=== PATIENT | male | born 1980 | race Caucasian/White ===

== ENCOUNTER 2021-05-12 13:13 | Emergency (ER) | payer OTHER, SELFPAY ==
--- NOTE | ~2021-05-12 | XR_ITS ---
EXAMINATION: XR chest 2V EXAM DATE: 05/12/2021 14:37 INDICATION: Chest pain, dyspnea. TECHNIQUE: Frontal and lateral projections of the chest obtained and reviewed. There is no prior evelyn dy for comparison. FINDINGS: The lungs are clear. There are no pleural effusions. The cardiomediastinal silhouette is within normal limits. There is no pneumothorax suspected. The bones and soft tissues are unremarkab le. IMPRESSION: No acute cardiopulmonary findings. Reviewed, dictated and finalized at location A. GENICS ENGINEER
--- NOTE | 2021-05-12 13:21 | ECG_ITS ---
Measurements Intervals [place] Rate: 82 P: 30 RI: 140 QRS: 13 QRSD: 86 T: 3 QT: 357 QTc: 418 Interpretive Statements SINUS RHYTHM DELAYED PRECORDIAL R/S TRANSITION MINIMAL Q WAVES- INFERIOR LEADS BORDERLINE ST-T WAVE ABNORMALITY- INFERIOR LEADS BORDERLINE ECG Electronically Signed On 05-12-2021 14:11:25 COATING MACHINE OPERATOR HELPER by Luis De La Torre D.O.
[2021-05-12 13:24] VITALS: BP 154/101; PULSE 80; RESP 16; TEMP 36.8; O2SAT 98
[2021-05-12 14:58] LABS: Basophils Percent Auto 0.3 % (0.2-1.2); Eosinophils Absolute Auto 0.1 K/mm3 (0-0.3); Hematocrit 46.8 % (42.0-52.0); Hemoglobin 16.9 g/dL (14.0-18.0); Immature Granulocyte Absolute 0.03 K/mm3 (0.00-0.031); Immature Granulocyte Percent A 0.3 % (0-0.5); Lymphocytes Absolute Auto 2.47 K/mm3 (0.9-3.2); Lymphocytes Percent Auto 28.3 % (18.3-44.2); Mean Corpuscular HGB Conc 36.1 g/dl (32-36); Mean Corpuscular Hemoglobin 31.2 pg (26-34); Mean Corpuscular Volume 86.3 fl (80-100); Mean Platelet Volume 9.3 fl (7.4-10.4); Monocytes Absolute Auto 0.6 K/mm3 (0.1-0.6); Monocytes Percent Auto 7.2 % (2.6-8.5); Neutrophils Absolute Auto 5.5 K/mm3 (1.3-6.7); Neutrophils Percent Auto 62.9 % (45.5-73.1); Platelet Count Result 423 k/mm3 (150-375); Red Blood Count 5.42 M/mm3 (4.6-6.20); Red Cell Distribution Width 11.8 % (11.5-14.5); White Blood Count 8.7 K/mm3 (4.5-10.0)
[2021-05-12 15:08] LABS: Partial Thromboplastin Time 29.7 SECONDS (22.3-36.8); Prothrombin Time 12.6 Seconds (11.1-14.7)
[2021-05-12 15:10] LABS: Alanine Aminotransferase 25 U/L (4-50); Albumin Level 4.6 g/dL (3.5-5.1); Alkaline Phosphatase 63 U/L (38-126); Anion Gap 10 mmol/L (8-16); Aspartate Amino Transferase 27 U/L (17-59); Bilirubin,Total 0.9 mg/dL (0.2-1.3); Blood Urea Nitrogen 13 mg/dL (9-20); Calcium 9.6 mg/dL (8.4-10.2); Carbon Dioxide 24 mmol/L (22-30); Chloride 104 mmol/L (98-107); Estimated CRCL calculation 101 ml/min; Estimated Glomerular Filt Rate > 60; Glucose 106 mg/dL (65-110); Lipase 51 U/L (23-300); Potassium 3.9 mmol/L (3.4-5.0); Sodium 138 mmol/L (137-145)
[2021-05-12 15:21] LABS: Troponin I < 0.012 ng/mL (0.000-0.034)
[2021-05-12 15:34] VITALS: BP 152/101; PULSE 81; RESP 20; O2SAT 96
--- NOTE | 2021-05-12 16:35 | ED.CHESTPAIN ---
HPI - Chest Pain General Chief Complaint: Chest Pain Stated Complaint: chest tightness Time Seen by Provider: 05/12/21 16:26 Source: patient Mode of arrival: ambulatory Limitations: no limitations History of Present Illness HPI narrative: 41 y/o male presents to the ER today for evalution for feeling tired and lightheaded since yesterday. He has felt a little short of breath and felt a brief episode of chest tightness today. He says that he took a home covid test 1 week ago and it was positive. He had some mild cold symptoms and sore throat. Those symptoms are better now. He has had some diarrhea but says that this has only been about once a day. He has been eating and drinking okay. No fever or chills. No nausea or vomiting. Related Data Allergies Allergy/AdvReac Type Severity Reaction Status Date / Time No Known Allergies Allergy Unverified 12/28/16 09:18 Review of Systems Constitutional: Constitutional: Denies chills, Reports fatigue and Denies fever(s) Eyes: Eyes: Denies change in vision ENT: Reports dizziness Cardiovascular: Cardiovascular: Reports no additional cardiovascular complaints, Denies chest pain, Denies rapid heart rate and Denies slow heart rate Respiratory: Respiratory: Denies chest congestion, Denies cough, Denies dyspnea and Denies wheezing Gastrointestinal: Gastrointestinal: Denies abdominal pain, Reports diarrhea, Denies nausea and Denies vomiting Genitourinary: Genitourinary: Denies oliguria and Denies dysuria Musculoskeletal: Musculoskeletal: Denies back pain Integumentary/Breasts: Skin/Breast: Denies rash Neurologic: Denies vertigo, Reports dizziness, Denies headache(s), Denies numbness and Denies weakness Psychiatric: Psychiatric: Reports no additional psychiatric complaints Endocrine: Endocrine: Reports no additional endocrine complaints Hematologic/Lymphatic: Hematologic/Lymphatic: Reports no additional hematologic/lymphatic complaints Allergic/Immunologic: Allergic/Immunologic: Reports no additional allergic/immunologic complaints Exam Const: General: no acute distress and alert Orientation/consciousness: patient oriented x3 HENMT: Head: normal to inspection Eyes: Conjunctivae: conjunctivae normal Pupils: Equal, round and reactive pupils present Neck: Neck: normal visual inspection Chest: Chest palpation & inspection: normal inspection of the chest Resp: Effort & Inspection: normal respiratory effort Auscultation: clear to auscultation bilaterally Cardio: Rate: regular rate Rhythm: regular rhythm GI: GI Palp: Yes Soft to palpation, No Tenderness to palpation present (GI) and No Guarding due to palpation present (GI) Skin: General skin exam: normal color Rashes: no rashes Neuro: General: patient oriented x3 and moves all extremities Extrem: General: normal to inspection Psych: Mental Status: mental status grossly normal Affect: normal affect Attitude: cooperative Course Vital Signs Vital signs: Vital Signs Temperature 36.8 C 05/12/21 13:24 Pulse Rate 80 05/12/21 13:24 Respiratory Rate 16 05/12/21 13:24 Blood Pressure 154/101 H 05/12/21 13:24 Pulse Oximetry 98 05/12/21 13:24 Temperature 36.8 C 05/12/21 13:24 Pulse Rate 81 05/12/21 15:34 Respiratory Rate 20 05/12/21 15:34 Blood Pressure 152/101 H 05/12/21 15:34 Pulse Oximetry 96 05/12/21 15:34 MDM - Chest Pain Medical Records Data Attestation: I reviewed the patient's medical records. Lab Data Attestation: I reviewed the patient's lab results. Result diagrams: 05/12/21 14:48 05/12/21 14:48 Labs: Lab Results 05/12/21 05/12/21 05/12/21 Range/Units 14:48 14:48 14:48 WBC 8.7 (4.5-10.0) K/mm3 RBC 5.42 (4.6-6.20) M/mm3 Hgb 16.9 (14.0-18.0) g/dL Hct 46.8 (42.0-52.0) % MCV 86.3 (80-100) fl MCH 31.2 (26-34) pg MCHC 36.1 H (32-36) g/dl RDW 11.8 (11.5-14.5) % Plt Count 423 H (150-375) k/mm3
== END 2021-05-12 17:26 | disposition home or self-care (01) ==
LOC: ANHED 17:08
PROVIDERS: Emergency Medicine; Emergency Provider Nurse Practitioner Family; PCP Emergency Medicine
DX: U07.1 COVID-19 (principal); R94.31 Abnormal electrocardiogram [ECG] [EKG]
CPT/HCPCS: 36415; 71046; 80053; 83690; 84484; 85025; 85610; 85730; 93005; 99284

== ENCOUNTER 2021-05-16 11:08 | Outpatient (CLI) | payer OTHER, SELFPAY ==
[2021-05-16 12:47] LABS: Cholesterol 211 mg/dL (0-200); HDL Direct 28 mg/dL; Triglycerides 257 mg/dL (<150)
[2021-05-16 12:58] LABS: LDL Cholesterol Direct 125 mg/dL
== END 2021-05-16 11:09 | disposition home or self-care (01) ==
LOC: ANHLAB 11:10
PROVIDERS: PCP Physician Assistant; Visit Provider Physician Assistant
DX: Z13.220 Encounter for screening for lipoid disorders (principal)
CPT/HCPCS: 36415; 80061

== ENCOUNTER 2021-06-05 16:03 | Outpatient (CLI) | payer OTHER, SELFPAY ==
--- NOTE | ~2021-06-05 | US_ITS ---
EXAMINATION: US carotid duplex BI DATE: 06/05/2021 16:43 INDICATION: Paresthesias. Hypertension. TECHNIQUE: Grayscale, color Doppler, and pulsed Doppler images of the cervical carotid arteries were obtained. The degree of vessel stenosis is placed in one of the following categories: normal, <50%, 5 0-69%, >=70% but less than near-occlusion, near-occlusion, or total occlusion. Note that percent sten osis relative to normal distal artery lumen diameter is indirectly measured from velocity measurement s as described by Shree, et al. Radiology 2003; 229:[id number]. Notes: Normal: Peak systolic velocity <125 centimeters/sec and no plaque <50%. Peak systolic velocity <125 ( EDV <40; ICA/CCA PSV ratio <2.0; used these factors only a tandem lesions or low cardiac output or co ntralateral disease) 50-69 %: PSV 125-230 (EDV 40-100; ratio 2-4) >= 70% but less than near occlusion: PSV greater than 230 (EDV > 100; ratio> 4.0) Near Occlusion: PSV that is variable; markedly narrowed lumen Occlusion: Absent flow on color/spectral Doppler and no lumen on spears scale. COMPARISON: None. FINDINGS: RIGHT: The right common carotid artery (CCA) peak systolic velocity (PSV) is 143 cm/s. The right internal ca rotid artery (ICA) PSV is 118 cm/s. The right ICA end-diastolic velocity (EDV) is 34 cm/s. The right ICA/CCA PSV ratio is 1.0. The external carotid artery (ECA) PSV is 144 cm/s. There is antegrade flow in the right vertebral artery. LEFT: The left CCA PSV is 158 cm/s. The left ICA PSV is 124 cm/s. The left ICA EDV is 49 cm/s. The left ICA /CCA PSV ratio is 1.0. The ECA PSV is 118 cm/s. There is antegrade flow in the left vertebral artery . IMPRESSION: 1. Less than 50% stenosis in the right internal carotid artery by sonographic criteria. 2. Less than 50% stenosis in the left internal carotid artery by sonographic criteria. Reviewed, dictated and finalized at location B. IMPRESSION: 1. Less than 50% stenosis in the right internal carotid artery by sonographic c jose. 2. Less than 50% stenosis in the left internal carotid artery by sonographic rene azar.
== END 2021-06-05 16:04 | disposition home or self-care (01) ==
LOC: ANHIMG 16:04
PROVIDERS: PCP Physician Assistant; Visit Provider Physician Assistant
DX: R20.2 Paresthesia of skin (principal); R03.0 Elevated blood-pressure reading, without diagnosis of hypertension; I65.23 Occlusion and stenosis of bilateral carotid arteries
CPT/HCPCS: 93880

== ENCOUNTER 2021-11-21 16:14 | Emergency (ER) | payer OTHER, SELFPAY ==
--- NOTE | ~2021-11-21 | XR_ITS ---
EXAMINATION: XR abdomen/kub 1V DATE: 11/21/2021 17:01 INDICATION: Right flank pain for 2 weeks with hematuria TECHNIQUE: A supine view of the abdomen on 2 radiographs was obtained. COMPARISON: None. FINDINGS: There are 3 small round calcifications in the left hemipelvis along the cephalad margin of the superi or pubic ramus which appear more caudal than would be expected for the course of the left ureter and are more likely to represent phleboliths. No evident urolithiasis. Normal bowel gas pattern. Bones ar e unremarkable. IMPRESSION: 1. A few phleboliths in the left pelvis. No evident urolithiasis. Reviewed, dictated and finalized at location A.
[2021-11-21 16:25] VITALS: BP 145/89; PULSE 74; RESP 18; TEMP 37.1; O2SAT 98
--- NOTE | 2021-11-21 17:01 | ED.MALEGU ---
HPI - Male Genitourinary General Chief complaint: Urogenital-Male Stated complaint: back pain Time Seen by Provider: 11/21/21 16:38 Source: patient, RN notes reviewed and old records reviewed Mode of arrival: ambulatory Limitations: no limitations History of Present Illness HPI Narrative: 41-year-old woman male who presents to [facility] care with complaints of urinary frequency which started about 2 weeks ago with some pain to his right side rib cage that was tolerable, now he has further right flank pain which is increased today and he states he is also having some pain to the left lower back. Patient denies any pain with urination or any visible blood in his urine MD Complaint: other (right flank pain and left lower back pain) Onset (ago): day(s) (10) Severity scale (1-10): 5 Quality: aching Related Data Allergies Allergy/AdvReac Type Severity Reaction Status Date / Time No Known Allergies Allergy Verified 11/21/21 16:41 Review of Systems Review of Systems: CONSTITUTIONAL: Denies fever, chills, or sweats. EYES: Denies visual changes, redness, or discharge. ENT: Denies rhinorrhea, congestion, sore throat, or otalgia. CARDIOVASCULAR: Denies chest pain, palpitations, or edema. RESPIRATORY: Denies cough or dyspnea. GASTROINTESTINAL: Denies abdominal pain, nausea, vomiting, or diarrhea. GENITOURINARY: Denies dysuria or hematuria.right flank pain and also left lower back pain SKIN: Denies rash or itching. MUSCULOSKELETAL: Positive for back pain,no joint pain, or myalgia. NEUROLOGIC: Denies headache, numbness, or weakness. PSYCHIATRIC: Denies anxiety or depression. [facility] Past Medical History Medical History (Updated 11/23/21 @ 21:37 by Zaida House NP) Bilateral carotid artery stenosis Doppler <50% bilaterally, 06/05/2021 Hypertension Pure hypercholesterolemia, unspecified Family History Family History Father Hypertension Heart disease Grandparent COPD (chronic obstructive pulmonary disease) Social History Social History Smoking status: Never smoker Second hand tobacco smoke exposure: No Alcohol intake: current Alcohol use details: Rarely Substance use: never Substance use type: does not use Gender identity (if verbalized by the patient): Male Sexual Orientation (if Verbalized by the Patient): Straight or Heterosexual Spiritual care concerns: No Agree to blood products: Yes Comments At time of signature, agree with nursing past medical, surgical, social and family history. There is no relevant family history pertinent to the presenting complaint Exam Narrative: GENERAL: Well-appearing, well-nourished, and in no acute distress. HEAD: Normocephalic, atraumatic. EYES: PERRLA and EOMI. ENT: Nares clear, no rhinorrhea or epistaxis. Mucous membranes moist.TM's normal with good light reflex, throat pink with no swelling or exudates NECK: Supple.no lymphadenopathy CHEST: Clear to auscultation. No respiratory distress.SAO2 98% on room air HEART: Regular rate and rhythm. No murmur heard. Normal peripheral pulses. ABDOMEN: Soft, nontender, nondistended, normal active bowel sounds.CVA tenderness right back and left lower back non radiating pain EXTREMITIES: Normal range of motion. No edema. SKIN: Warm, dry, no rash. NEURO: No focal deficits. Alert and oriented x3. Course Course Level of Care: Express Care Visit Vital Signs Vital signs: Vital Signs Temperature 37.1 C 11/21/21 16:25 Pulse Rate 74 11/21/21 16:25 Respiratory Rate 18 11/21/21 16:25 Blood Pressure 145/89 H 11/21/21 16:25 Pulse Oximetry 98 11/21/21 16:25 Oxygen Delivery Room Air 11/21/21 16:25 Temperature 37.1 C 11/21/21 16:25 Pulse Rate 74 11/21/21 16:25 Respiratory Rate 18 11/21/21 16:25 Blood Pressure 145/89 H 11/21/21 16:25 Pulse Oximetry 98 11/21/21 16:25 Oxygen Delivery Room A
== END 2021-11-21 17:44 | disposition home or self-care (01) ==
PROVIDERS: Emergency Provider Registered Nurse
DX: M54.50 Low back pain, unspecified (principal); I65.23 Occlusion and stenosis of bilateral carotid arteries; I10 Essential (primary) hypertension; E78.00 Pure hypercholesterolemia, unspecified
CPT/HCPCS: 74018; 81003; 99213; G0463

== ENCOUNTER 2021-12-15 10:27 | Emergency (ER) | payer OTHER, SELFPAY ==
[2021-12-15] VITALS (29 sets, daily range): BP systolic 127–139; BP diastolic 82–93; PULSE 61–75; RESP 12–23; TEMP 36.6; O2SAT 90–99
--- NOTE | ~2021-12-15 | XR_ITS ---
EXAMINATION: XR chest 2V DATE: 12/15/2021 11:53 INDICATION: Chest tightness. TECHNIQUE: Frontal and lateral views of the chest were obtained. COMPARISON: Chest 2 views 05/12/2021 FINDINGS: There is no pneumonia, pleural effusion, or pneumothorax. The heart size is normal. IMPRESSION: 1. No acute cardiopulmonary disease. Reviewed, dictated and finalized at location A.
--- NOTE | 2021-12-15 10:28 | ECG_ITS ---
Measurements Intervals [place] Rate: 67 P: 31 NE: 174 QRS: 7 QRSD: 88 T: 15 QT: 376 QTc: 398 Interpretive Statements SINUS RHYTHM DELAYED PRECORDIAL R/S TRANSITION MINIMAL Q WAVES- INFERIOR LEADS BASELINE WANDER- VL, AVF BORDERLINE ECG COMPARED TO ECG 05/12/2021 13:26:26 NO SIGNIFICANT CHANGES Electronically Signed On 12-15-2021 11:14:22 CDT by Luis De La Torre D.O.
[2021-12-15 10:45] LABS: Basophils Percent Auto 0.3 % (0.2-1.2); Eosinophils Absolute Auto 0.2 K/mm3 (0-0.3); Eosinophils Percent Auto 2.7 % (0-4.4); Hematocrit 47.9 % (42.0-52.0); Hemoglobin 16.6 g/dL (14.0-18.0); Immature Granulocyte Absolute 0.02 K/mm3 (0.00-0.031); Immature Granulocyte Percent A 0.3 % (0-0.5); Lymphocytes Absolute Auto 2.72 K/mm3 (0.9-3.2); Lymphocytes Percent Auto 38.3 % (18.3-44.2); Mean Corpuscular HGB Conc 34.7 g/dl (32-36); Mean Corpuscular Volume 89.4 fl (80-100); Mean Platelet Volume 9.4 fl (7.4-10.4); Monocytes Absolute Auto 0.5 K/mm3 (0.1-0.6); Monocytes Percent Auto 7.2 % (2.6-8.5); Neutrophils Absolute Auto 3.7 K/mm3 (1.3-6.7); Neutrophils Percent Auto 51.2 % (45.5-73.1); Platelet Count Result 362 k/mm3 (150-375); Red Blood Count 5.36 M/mm3 (4.6-6.20); White Blood Count 7.1 K/mm3 (4.5-10.0)
[2021-12-15 10:55] LABS: INR 1.1; Prothrombin Time 13.3 Seconds (11.1-14.7)
[2021-12-15 10:57] LABS: Alanine Aminotransferase 27 U/L (6-50); Albumin Level 4.7 g/dL (3.5-5.1); Alkaline Phosphatase 53 U/L (38-126); Anion Gap 15 mmol/L (8-16); Aspartate Amino Transferase 25 U/L (17-59); Bilirubin,Total 0.9 mg/dL (0.2-1.3); Blood Urea Nitrogen 15 mg/dL (9-20); Carbon Dioxide 24 mmol/L (22-30); Chloride 101 mmol/L (98-107); Estimated CRCL calculation 92 ml/min; Estimated Glomerular Filt Rate > 60; Glucose 120 mg/dL (65-110); Lipase 68 U/L (23-300); Potassium 4.1 mmol/L (3.4-5.0); Sodium 140 mmol/L (137-145)
[2021-12-15 11:08] LABS: Troponin I < 0.012 ng/mL (0.000-0.034)
--- NOTE | 2021-12-15 11:52 | ED.CHESTPAIN ---
HPI - Chest Pain General Chief Complaint: Chest Pain Stated Complaint: Chest Tighness/Pain Time Seen by Provider: 12/15/21 11:28 History of Present Illness HPI narrative: Pt presents with intermittent left sided CP over the last 3 days. Pt denies precipitating factors, seems to get better when he lies down. Pt siad the spell two days ago alsted a couple of hours before resolving. Today had episode that lasted 20-30 minutes starting at 0730 when he woke up. Pt has no pain now. Related Data Allergies Allergy/AdvReac Type Severity Reaction Status Date / Time No Known Allergies Allergy Verified 12/04/21 13:09 Review of Systems Review of Systems: All systems reviewed & are unremarkable except as noted in HPI and below PMFSH Past Medical History Medical History Bilateral carotid artery stenosis Doppler <50% bilaterally, 06/05/2021 Hypertension Pure hypercholesterolemia, unspecified Family History Family History Father Hypertension Heart disease Grandparent COPD (chronic obstructive pulmonary disease) Social History Social History Smoking status: Never smoker Second hand tobacco smoke exposure: No Alcohol intake: current Alcohol use details: Rarely Substance use: never Substance use type: does not use Gender identity (if verbalized by the patient): Male Sexual Orientation (if Verbalized by the Patient): Straight or Heterosexual Spiritual care concerns: No Agree to blood products: Yes Exam Const: General: healthy appearing and no acute distress Nutritional Appearance: well nourished Orientation/consciousness: patient oriented x3 Limitations: no limitations Neck: Neck: normal visual inspection and no lymphadenopathy Chest: Chest palpation & inspection: normal inspection of the chest Resp: Effort & Inspection: normal respiratory effort Auscultation: clear to auscultation bilaterally Cardio: Rate: regular rate Rhythm: regular rhythm GI: Auscultation: normal bowel sounds Skin: General skin exam: normal color Rashes: no rashes Wounds: no wounds Neuro: General: patient oriented x3, moves all extremities, no meningeal signs, no focal motor deficits and CN's II-XI intact bilaterally Speech: normal speech Gait exam (Neuro): Normal gait present Extrem: General: normal to inspection and no clubbing, cyanosis or edema Psych: Mental Status: mental status grossly normal Affect: normal affect Attitude: cooperative Course Vital Signs Vital signs: Vital Signs Temperature 97.9 F 12/15/21 10:38 Pulse Rate 72 12/15/21 10:38 Respiratory Rate 14 12/15/21 10:38 Blood Pressure 134/92 H 12/15/21 10:38 Temperature 97.9 F 12/15/21 10:38 Pulse Rate 71 12/15/21 14:01 Respiratory Rate 12 12/15/21 14:01 Blood Pressure 127/82 12/15/21 14:01 Pulse Oximetry 90 12/15/21 14:01 MDM - Chest Pain Lab Data Result diagrams: 12/15/21 10:39 12/15/21 10:39 Labs: Lab Results 12/15/21 12/15/21 12/15/21 Range/Units 10:39 10:39 10:39 WBC 7.1 (4.5-10.0) K/mm3 RBC 5.36 (4.6-6.20) M/mm3 Hgb 16.6 (14.0-18.0) g/dL Hct 47.9 (42.0-52.0) % MCV 89.4 (80-100) fl MCH 31.0 (26-34) pg MCHC 34.7 (32-36) g/dl RDW 12.0 (11.5-14.5) % Plt Count 362 (150-375) k/mm3 MPV 9.4 (7.4-10.4) fl Immature Gran % (Auto) 0.3 (0-0.5) % Neut % (Auto) 51.2 (45.5-73.1) % Lymph % (Auto) 38.3 (18.3-44.2) % [place] % (Auto) 7.2 (2.6-8.5) % Eos % (Auto) 2.7 (0-4.4) % Baso % (Auto) 0.3 (0.2-1.2) % Lymph # (Auto) 2.72 (0.9-3.2) K/mm3 [place] # (Auto) 0.5 (0.1-0.6) K/mm3 Eos # (Auto) 0.2 (0-0.3) K/mm3 Baso # (Auto) 0.0 (0.0-0.1) K/mm3 Abs Immat Gran (auto) 0.02 (0.00-0.031) K/mm3 Absolute Neuts (auto) 3.7 (1
[2021-12-15] MEDS: ASPIRIN 81 MG CHEWABLE TABLET 324 MG PO (11:55)
[2021-12-15 13:46] LABS: Troponin I < 0.012 ng/mL (0.000-0.034)
== END 2021-12-15 14:30 | disposition home or self-care (01) ==
PROVIDERS: Emergency Provider Emergency Medicine; PCP Physician Assistant
DX: R07.89 Other chest pain (principal); I65.23 Occlusion and stenosis of bilateral carotid arteries; I10 Essential (primary) hypertension; E78.00 Pure hypercholesterolemia, unspecified; R94.31 Abnormal electrocardiogram [ECG] [EKG]
CPT/HCPCS: 36415; 71046; 80053; 83690; 84484; 85025; 85610; 85730; 93005; 99284; A9270

== ENCOUNTER → 2022-02-24 10:15 | Outpatient (CLI) | payer OTHER, SELFPAY ==
--- NOTE | ~2022-02-24 | CT_ITS ---
EXAMINATION: CT abdomen pelvis w con INDICATION: Persistent left lower quadrant pain TECHNIQUE: Computed tomographic images of the abdomen and pelvis were obtained after the administrati on of 100 cc of Omnipaque 350 intravenous contrast. The dose-length product (DLP) was 1053.36 mGy-cm. Automated exposure control and iterative reconstruction technique were employed. COMPARISON: None available FINDINGS: The lung bases are clear. The heart size is normal. There is a small sliding hiatal hernia. The liver, spleen, pancreas, gallbladder, and adrenal glands are normal. The kidneys are unremarkabl e. No pathologically enlarged abdominal or pelvic lymph nodes are identified. There is no free intrap eritoneal gas or evidence of bowel obstruction. The appendix is normal. There are umbilical and right inguinal hernias containing fat. IMPRESSION: 1. No CT correlate for the patient's symptoms. Reviewed, dictated and finalized at location A. R OPERATOR VACUUM PAN SALT
[2022-02-24 10:35] LABS: Estimated Glomerular Filt Rate > 60
== END ==
PROVIDERS: PCP Physician Assistant; Visit Provider Physician Assistant
DX: R10.32 Left lower quadrant pain (principal)
CPT/HCPCS: 74177; Q9967

== ENCOUNTER 2022-08-21 01:52 | Day surgery (SDC) | payer OTHER, SELFPAY ==
[2022-08-06 15:57] VITALS: BMI 31.8
[2022-08-21 10:18] VITALS: BP 128/95; PULSE 103; RESP 20; TEMP 36.8; O2SAT 96
[2022-08-21] MEDS: LACTATED RINGERS 1,000 ML 150 ML IV CONT (10:26)
--- NOTE | 2022-08-21 10:48 | PM.HPGS ---
History of Present Illness History of Present Illness Consent: Risks, benefits, and alternatives have been discussed and questions answered. Patient agrees to proceed with procedure. Chief complaint: change in bowel habits, abdom.pain Narrative: Thor Blake is a 42 year old male with intermittent left abdominal pain and change in bowel habits since october last year, CT scan normal, never had colonoscopy Review of Systems Constitutional: Constitutional: Denies headache(s) and Denies weakness Eyes: Eyes: Denies blurry vision ENT: Reports Normal hearing present, Denies headache(s) and Denies neck pain Cardiovascular: Cardiovascular: Denies chest pain and Denies dyspnea Respiratory: Respiratory: Denies dyspnea Gastrointestinal: Gastrointestinal: Reports no additional gastrointestinal complaints Genitourinary: Genitourinary: Denies dysuria Musculoskeletal: Musculoskeletal: Denies neck pain Integumentary/Breasts: Skin/Breast: Denies dry skin Neurologic: Reports Normal hearing present, Denies headache(s) and Denies weakness Psychiatric: Psychiatric: Denies anxiety Endocrine: Endocrine: Denies change in body appearance Hematologic/Lymphatic: Hematologic/Lymphatic: Denies easy bleeding Allergic/Immunologic: Allergic/Immunologic: Denies urticaria PMFSH Past Medical History Medical History (Updated 03/03/22 @ 14:41 by Diya Richards, SAWMILL HAND-C) Bilateral carotid artery stenosis Doppler <50% bilaterally, 06/05/2021 Bowel habit changes Hypertension Left sided abdominal pain Pure hypercholesterolemia, unspecified Family History Family History Father Hypertension Heart disease Grandparent COPD (chronic obstructive pulmonary disease) Social History Social History Smoking status: Never smoker Second hand tobacco smoke exposure: No Alcohol intake: current Alcohol use details: 2-3 drinks monthly Substance use: never Substance use type: does not use Living arrangements: with family Occupation/Education: occupation Gender identity (if verbalized by the patient): Male Sexual Orientation (if Verbalized by the Patient): Straight or Heterosexual Spiritual care concerns: No Agree to blood products: Yes Meds Home Medications and Allergies Home Medications Medication Instructions Recorded Confirmed Type tadalafil 20 mg tablet 20 mg PO DAILY PRN sexual activity 03/17/22 08/21/22 Rx #30 tabs lisinopril 20 mg tablet 20 mg PO DAILY #90 tabs 08/17/22 08/21/22 Rx Allergies Allergy/AdvReac Type Severity Reaction Status Date / Time No Known Allergies Allergy Verified 08/21/22 10:17 Vital Signs Vital Signs - 24 hr 08/21/22 10:18 Temperature 98.2 F Pulse Rate 103 H Respiratory Rate 20 Blood Pressure 128/95 H Pulse Oximetry 96 Oxygen Delivery Room Air Exam Const: General: comfortable and no acute distress HENMT: Face/Nose/Sinus: Normal nares present Eyes: General: appearance normal, both eyes and all related structures Neck: Neck: no JVD Resp: Auscultation: clear to auscultation bilaterally Cardio: Rate: regular rate Rhythm: regular rhythm GI: Inspection: non-distended GI Palp: Yes Soft to palpation Skin: General skin exam: normal color Neuro: General: gait normal Speech: normal speech Extrem: General: normal to inspection Psych: Mental Status: mental status grossly normal Assessment and Plan Assessment and plan (1) Left sided abdominal pain: Code(s): R10.9 - Unspecified abdominal pain Status: Acute Assessment and Plan: colonoscopy (2) Bowel habit changes: Code(s): R19.4 - Change in bowel habit Status: Acute
--- NOTE | 2022-08-21 11:00 | WPDANESEPPF ---
Anes - Initial Pre Proc Eval Procedure: Operation Date: 08/21/22 11:30 Proposed Procedures p Colonoscopy - Jewel Ramos MD Date/Time: 08/21/22 11:00 Surgeon: Jewel Ramos MD Pre Op Diagnosis: change in bowel habits, abdom.pain Patient Data Age: 42 Gender: M Height: 1.75 m Weight: 93.8 kg Last Vital Signs Temp 98.2 F 08/21/22 10:18 Pulse 103 H 08/21/22 10:18 Resp 20 08/21/22 10:18 BP 128/95 H 08/21/22 10:18 Pulse Ox 96 08/21/22 10:18 O2 Del Method Room Air 08/21/22 10:18 Allergies Allergy/AdvReac Type Severity Reaction Status Date / Time No Known Allergies Allergy Verified 08/21/22 10:17 Home Medications Medication Instructions Recorded Confirmed Type tadalafil 20 mg tablet 20 mg PO DAILY PRN sexual activity 03/17/22 08/21/22 Rx #30 tabs lisinopril 20 mg tablet 20 mg PO DAILY #90 tabs 08/17/22 08/21/22 Rx Patient hx anesthesia problems: none Family hx anesthesia problems: none Results Review: All pre-operative results and documents have been reviewed as part of the pre-operative evaluation. [facility] Past Medical History Medical History (Updated 03/03/22 @ 14:41 by Diya Richards APN-C) Bilateral carotid artery stenosis Doppler <50% bilaterally, 06/05/2021 Bowel habit changes Hypertension Left sided abdominal pain Pure hypercholesterolemia, unspecified Family History Family History Father Hypertension Heart disease Grandparent COPD (chronic obstructive pulmonary disease) Social History Social History Smoking status: Never smoker Second hand tobacco smoke exposure: No Alcohol intake: current Alcohol use details: 2-3 drinks monthly Substance use: never Substance use type: does not use Living arrangements: with family Occupation/Education: occupation Gender identity (if verbalized by the patient): Male Sexual Orientation (if Verbalized by the Patient): Straight or Heterosexual Spiritual care concerns: No Agree to blood products: Yes Anes - Eval Final PreProcedure Day of Procedure 08/21/22 11:00 Patient weight: obese Heart: regular rate and rhythm Lungs: clear to auscultation Airway: Mallampati scale class II Neurological: alert and oriented Last oral intake: >/= 8 hours ASA classification: II Emergent: no Anesthetic plan: proceed Anesthesia type and monitoring: general GIVS and standard monitoring Results Review: All pre-operative results and documents have been reviewed as part of the pre-operative evaluation. Informed Consent: The patient's anesthetic plan and its attendant risks and benefits were discussed with the patient/family/POA. Questions were solicited and answers provided to the satisfaction of the patient/family/POA.
[2022-08-21 11:06] VITALS: BP 100/66; PULSE 60; RESP 18; O2SAT 94
[2022-08-21 11:16] VITALS: BP 112/61; PULSE 66; RESP 20; O2SAT 98
[2022-08-21 11:26] VITALS: BP 108/67; PULSE 80; RESP 20; O2SAT 98
== END 2022-08-21 11:33 | disposition home or self-care (01) ==
PROVIDERS: PCP Family Medicine Adolescent Medicine; Visit Provider Internal Medicine Gastroenterology
PROC: 0DJD8ZZ Inspection of Lower Intestinal Tract, Via Natural or Artificial Opening Endoscopic (ICD-10-PCS; CPT 45378; principal; 2022-08-21 11:30)
DX: K63.5 Polyp of colon (principal); K64.8 Other hemorrhoids; K57.30 Diverticulosis of large intestine without perforation or abscess without bleeding; I10 Essential (primary) hypertension; E66.9 Obesity, unspecified; Z68.30 Body mass index [BMI] 30.0-30.9, adult
CPT/HCPCS: 45380; 88305; J2704; J7120

== ENCOUNTER 2023-01-13 12:34 | Outpatient (CLI) | payer OTHER, SELFPAY ==
[2023-01-19 14:39] LABS: Immunoglobulin A 369 mg/dL (47-310); TTG IGA AB <1.0 U/mL (<15.0)
== END 2023-01-13 12:35 | disposition home or self-care (01) ==
LOC: ANHLAB 12:35
PROVIDERS: PCP Family Medicine Adolescent Medicine; Visit Provider Nurse Practitioner Family
DX: R19.4 Change in bowel habit (principal)
CPT/HCPCS: 36415; 82784; 86364

== ENCOUNTER 2023-07-15 08:05 | Outpatient (CLI) | payer OTHER, SELFPAY ==
[2023-07-15 09:16] LABS: Basophils Percent Auto 0.4 % (0.2-1.2); Eosinophils Absolute Auto 0.2 K/mm3 (0-0.3); Eosinophils Percent Auto 2.5 % (0-4.4); Hemoglobin 16.6 g/dL (14.0-18.0); Immature Granulocyte Absolute 0.01 K/mm3 (0.00-0.031); Immature Granulocyte Percent A 0.1 % (0-0.5); Lymphocytes Absolute Auto 2.92 K/mm3 (0.9-3.2); Lymphocytes Percent Auto 42.7 % (18.3-44.2); Mean Corpuscular HGB Conc 33.9 g/dl (32-36); Mean Corpuscular Hemoglobin 30.7 pg (26-34); Mean Corpuscular Volume 90.7 fl (80-100); Mean Platelet Volume 9.8 fl (7.4-10.4); Monocytes Absolute Auto 0.4 K/mm3 (0.1-0.6); Monocytes Percent Auto 6.3 % (2.6-8.5); Neutrophils Absolute Auto 3.3 K/mm3 (1.3-6.7); Platelet Count Result 363 k/mm3 (150-375); Red Cell Distribution Width 12.5 % (11.5-14.5); White Blood Count 6.8 K/mm3 (4.5-10.0)
[2023-07-15 09:55] LABS: Alanine Aminotransferase 22 U/L (6-50); Albumin Level 4.6 g/dL (3.5-5.1); Alkaline Phosphatase 50 U/L (38-126); Anion Gap 8 mmol/L (4-12); Aspartate Amino Transferase 25 U/L (17-59); Bilirubin,Total 1.1 mg/dL (0.2-1.3); Blood Urea Nitrogen 21 mg/dL (9-20); Calcium 9.3 mg/dL (8.4-10.2); Carbon Dioxide 24 mmol/L (22-30); Chloride 106 mmol/L (98-107); Cholesterol 170 mg/dL (0-200); Estimated Glomerular Filt Rate > 60; Glucose 117 mg/dL (65-110); HDL Direct 35 mg/dL; Potassium 4.2 mmol/L (3.4-5.0); Sodium 138 mmol/L (137-145); Triglycerides 145 mg/dL (<150)
[2023-07-15 10:06] LABS: LDL Cholesterol Direct 113 mg/dL
[2023-07-18 04:14] LABS: Testosterone Total 331 ng/dL (250-1100)
== END 2023-07-15 08:06 | disposition home or self-care (01) ==
PROVIDERS: PCP Family Medicine Adolescent Medicine; Visit Provider Nurse Practitioner Family
DX: N52.9 Male erectile dysfunction, unspecified (principal); E78.00 Pure hypercholesterolemia, unspecified; I10 Essential (primary) hypertension; R19.4 Change in bowel habit
CPT/HCPCS: 36415; 80053; 80061; 84403; 84443; 85025; 86003